=== PATIENT | male | born 1970 | race Caucasian/White ===

== ENCOUNTER 2019-05-22 20:55 | Emergency (ER) | payer SELFPAY ==
[~2019-05-22] VITALS: Ht 165.1 cm; Wt 95.0 kg
[2019-05-22] MEDS ORDERED: LIDOCAINE 1%/EPI 1:100,000 10 ML VIAL IJ ONE (22:30)
[2019-05-22] MEDS ORDERED: TETANUS, DIPHTHERIA, PERTUSSIS VAC/PF 0.5ML (>7YR OLD) IM ONE (22:30)
[2019-05-22] MEDS ORDERED: FOLIC ACID 1 MG, THIAMINE HCL 100 MG, MVI, ADULT NO.1 10 ML in DEXTROSE 5% WATER 1,000 ML IV ONE ×4 (22:30)
[2019-05-22] MEDS ORDERED: ONDANSETRON HCL 4MG/2ML INJ IV ONE (22:30)
[2019-05-22] MEDS ORDERED: LIDOCAINE HCL/EPINEPHRINE 1%-EPI 1:100,000 20 ML VIAL INFIL ONE (23:45)
[2019-05-23 06:50] VITALS: BP 128/69
== END 2019-05-23 07:03 | disposition home or self-care (01) ==
LOC: ER 20:55
DX: S01.112A Laceration without foreign body of left eyelid and periocular area, initial encounter (principal); F12.10 Cannabis abuse, uncomplicated; Y04.0XXA Assault by unarmed brawl or fight, initial encounter; Y93.9 Activity, unspecified; Y92.89 Other specified places as the place of occurrence of the external cause; Y99.8 Other external cause status
CPT/HCPCS: 12013; 70450; 70486; 72125; 90471; 90715; 96365; 96375; 99284; J2405; J3411; J3490; J7070; Z7610